=== PATIENT | female | born 1955 | race Asian ===

== ENCOUNTER → 2016-10-25 | Outpatient (CLI) | payer OTHER | END | disposition home or self-care (01) | LOC: PUL 08:39 | PROVIDERS: ATTEND Family Medicine | DX: E66.01 Morbid (severe) obesity due to excess calories (principal); R06.02 Shortness of breath | CPT/HCPCS: 94060; 94726 ==

== ENCOUNTER → 2017-03-22 | Outpatient (CLI) | payer OTHER ==
[~2017-03-22] MED LIST: APRACLONIDINE 1% 0.1 ML OPH ONE; OPHTHALMIC IRRIG SOLUTION 120 ML ONE; PROPARACAINE 0.5% 15 ML OPH ONE
== END | disposition home or self-care (01) ==
LOC: RAD 08:55
PROVIDERS: ATTEND Ophthalmology
DX: H40.20X0 Unspecified primary angle-closure glaucoma, stage unspecified (principal)
CPT/HCPCS: 66761; Z7610

== ENCOUNTER → 2017-03-29 | Outpatient (CLI) | payer OTHER ==
[~2017-03-29] MED LIST changes: -OPHTHALMIC IRRIG SOLUTION 120 ML ONE; +PILOCARPINE 2% 15ML OPH ONE
== END | disposition home or self-care (01) ==
LOC: RAD 10:13
PROVIDERS: ATTEND Ophthalmology
DX: H40.20X0 Unspecified primary angle-closure glaucoma, stage unspecified (principal)
CPT/HCPCS: 66761; Z7610

== ENCOUNTER 2018-01-10 07:21 | Day surgery (SDC) | END 2018-01-10 12:29 | disposition home or self-care (01) ==

== ENCOUNTER 2018-02-07 07:27 | Day surgery (SDC) | END 2018-02-08 12:47 | disposition home or self-care (01) ==